=== PATIENT | male | born 1955 | race Hispanic/Latino ===

== ENCOUNTER 2016-09-14 19:47 | Emergency (ER) | payer OTHER ==
[~2016-09-14] VITALS: Ht 182.9 cm; Wt 84.8 kg
--- NOTE | 2016-09-14 21:55 | ED UPPER/LOWER EXTREMITY COMPL ---
History of Present Illness General Chief Complaint: Lower Extremity Problems Stated Complaint: I HAVE WOUNDS ON MY LEGS Source: patient Exam Limitations: no limitations Vital Signs & Intake/Output Vital Signs & Intake/Output Vital Signs Date Time Temp Pulse Resp B/P B/P Pulse O2 O2 Flow FiO2 Mean Ox Delivery Rate 09/14 2330 98.3 70 18 159/75 96 09/15 2019 98.7 96 18 177/93 96 Room Air ED Intake and Output 09/15 0000 09/14 1200 Intake Total Output Total Balance Patient 187 lb Weight Weight Reported by Patient Measurement Method Allergies Coded Allergies: Penicillins (Severe, SWELLING, RASH 09/14/16) Reconcile Medications Aspirin (Ecotrin*) 81 MG TABLET.DR 1 TAB PO DAILY HEART/BLOOD (Reported) Doxycycline Hyclate 100 MG TABLET 1 TAB PO BID open wound Lisinopril 10 MG TABLET 1 TAB PO DAILY BP (Reported) Oxycodone HCl/Acetaminophen (Percocet 5-325 MG Tablet) 5 MG-325 MG TABLET 1-2 TAB PO Q6P PRN pain Triage Note: PT TO TRIAGE WITH C/O CHRONIC WOUNDS TO LLE THAT GETTING WORSE AFTER ?VASCULAR SURGERY YESTERDAY AT [facility]. DRESSING TO Ana GARCIA NOTED. PER PT +PAIN AND +DISCHARGE FROM WOUNDS. Triage Nurses Notes Reviewed? yes Onset: Abrupt Duration: week(s):, constant, continues in ED Timing: recent history No Modifying Factors: none HPI: 61-year-old male comes into emergency room for further evaluation of left lower leg pain and open wound. Patient reports that he's been dealing with an open wound in his leg for many months. Patient has been seeing his vascular doctor. Patient reports that he had a procedure done last week where he had some vein stripping reports that he had a stent put in his leg a couple days ago. Patient reports that he is here primarily because he was concerned that his leg may be infected and he was having pain to the leg. He denies any fever chills vomiting. Denies any other associated symptoms. Past History Travel History Traveled to [place] past 21 day No Medical History Any Pertinent Medical History? see below for history Cardiovascular: hypertension Surgical History Surgical History: non-contributory Psychosocial History What is your primary language Vietnamese Tobacco Use: Never used Family History Hx Contributory? No Review of Systems Review of Systems Constitutional: Reports: no symptoms. EENTM: Reports: no symptoms. Respiratory: Reports: no symptoms. Cardiovascular: Reports: no symptoms. Gastrointestinal/Abdominal: Reports: no symptoms. Genitourinary: Reports: no symptoms. Musculoskeletal: Reports: see HPI. Skin: Reports: see HPI. Neurological/Psychological: Reports: no symptoms. Hematologic/Endocrine: Reports: no symptoms. Immunological: Reports: no symptoms. All Other Systems: Reviewed and Negative Physical Exam Physical Exam General Appearance: well developed/nourished, mild distress Head: atraumatic Eyes: Bilateral: normal appearance. Ears, Nose, Throat: normal ENT inspection, hearing grossly normal Neck: normal inspection Cardiovascular/Respiratory: no respiratory distress Peripheral Pulses: 2+ dorsalis pedis (L) Back: normal inspection Neurologic/Tendon: normal sensation, responds to pain, no evidence tendon injury , no pulse deficit Skin: intact, normal color, warm/dry Lymphatic: no anterior cervical rick Comments: Patient has large open wound to left lower extremity, patient appears to have some weeping from the wound, good tissue granulation, some mild surrounding erythema, some swelling to the leg in general, some mild pitting edema, dorsalis pedis pulse intact, cap refill less than 2 seconds, wound covers from mid garcia down to left medial malleoli region, there is no foul-smelling, full range of motion of foot, Progress Differential Diagnosis: arterial insufficiency, cellulitis, CHF, compartment syndrome, contusion, dislocation, DVT, fracture, gout, septic arthritis, sprain, tendon injury, osteomyelitis Plan of Care: Orders Procedure Date/time Status C-REACTIVE PROTEIN 09/14 2134 Complete CBC WITHOUT DIFFERENTIAL 09/14 2134 Complete BASIC METABOLIC PANEL 09/14 2134 Complete US-UNILATERAL VENOUS DOPPLER 09/14 2126 Active Laboratory Tests 09/14/162144: Anion Gap 10, Estimated GFR > 60, BUN/Creatinine Ratio 20.0, Glucose 124 H, Calcium 9.0, C-Reactive Prot, Quant 0.9, CBC w Diff NO MAN DIFF REQ, RBC 4.53 L , MCV 91.5, MCH 31.1 H, RDW 12.2, MPV 7.7, Gran % 68.8, Lymphocytes % 16.7 L, Monocytes % 9.2, Eosinophils % 4.7, Basophils % 0.6, Absolute Granulocytes 5.4, Absolute Lymphocytes 1.3, Absolute Monocytes 0.7 H, Absolute Eosinophils 0.4, Absolute Basophils 0, PUBS MCHC 34.0 Diagnostic Imaging: Viewed by Me: Radiology Read. Discussed w/RAD: Radiology Read. Radiology Impression: SERVICE DATE: 09/14/16 EXAM TYPE: RAD - XRY-ANKLE 3 OR MORE VIEWS L; [id number], LEFT EXAMINATION: 1. Left tibia-fibula. 2. Left ankle. CLINICAL INFORMATION: Open wound. Pain. Concern for osteomyelitis. COMPARISON: None TECHNIQUE: 1. Left tibia-fibula. 2 views 2. Left ankle. 3 views FINDINGS: 1. Left tibia-fibula. No air in the soft tissue. No focal bone destruction. No radiographic evidence for osteomyelitis. There is coarse periosteal reaction in the mid tibial shaft laterally which is chronic in nature. There is small skin calcifications at the medial side of the mid and distal leg which are chronic. 2. Left ankle. No fracture. No dislocation. Ankle mortise congruent. No bone destruction. No radiographic evidence for osteomyelitis. IMPRESSION: 1. Left tibia-fibula. No radiographic evidence for osteomyelitis. 2. Left ankle. No radiographic evidence for osteomyelitis. DICTATED BY: CARMELLA SALAS MD DATE/TIME DICTATED:09/14/162212 BLIND STITCH MACHINE OPERATOR :CHICA DATE/TIME TRANSCRIBED:09/14/162212 Departure Departure Disposition: HOME OR SELF CARE Condition: Stable Clinical Impression Primary Impression: Open wound of leg Referrals: BEST VIZCAINO,VIOLETA [place] (PCP/Family) Additional Instructions: Take doxycycline and Percocet as prescribed. Follow-up with primary care doctor and your vascular doctor. Follow-up will wound center next week as scheduled. Call for outpatient ultrasound of the left lower leg tomorrow. A slit has been provided to you. Please go over all results of today's visit with your primary care doctor. Contact your primary care doctor to let them know you were here in the emergency room. There may be nonspecific findings which may not be related to your visit today here in the emergency room but may require further evaluation and chronic monitoring by your primary care doctor. If you had a laceration today the chance of foreign body always remains. You should follow-up with your primary care doctor for recheck in 3-5 days for a wound check. If you had an x-ray done there is a chance that a fracture could have been missed on initial read and you should follow-up with your primary care doctor for repeat x-rays if symptoms persist. If your blood pressure was elevated here in the emergency room please have rechecked by her primary care doctor within the next 48 hours by your primary care doctor. If you were prescribed a narcotic here in the emergency room or any type of controlled substances you're not allowed to drive while taking this medication or operate any type of heavy machinery. Narcotics can make you feel lightheaded dizziness nausea and can cause constipation. You may need to pickle water pump operator a stool softener. Thank you for choosing [facility] emergency room. Please return to the emergency room immediately if you have any other concerns worsening of symptoms. Departure Forms: Customer Survey General Discharge Information Prescriptions: Current Visit Scripts Doxycycline Hyclate 1 TAB PO BID #14 TAB Oxycodone HCl/Acetaminophen (Percocet 5-325 MG Tablet) 1-2 TAB PO Q6P PRN pain #20 TAB Comments Patient clinically looks well. Nontoxic-appearing. In no apparent distress. No evidence of osteomyelitis. Patient was unable to get ultrasound tonight. Patient was given outpatient slip to have outpatient ultrasound done tomorrow. Patient has good pulses. Sensation is intact. He started on Doxy. Patient already has follow-up with wound care center. At this time due to the fact of the patient has seen his vascular surgeon multiple times over the course of the past couple months andthe fact that his leg has looks like this for a couple months that have a low suspicion for a DVT and I would imagine that the vascular doctor has already evaluated for this by do not have any other records. At this time I do not feel patient needs any prophylactic anticoagulation tonight. Patient can safely follow-up tomorrow for outpatient ultrasound.
[2016-09-14] MEDS ORDERED: LISINOPRIL10 M1 PO (22:00)
[2016-09-14] MEDS ORDERED: ASPIRIN EC81 M1 PO (22:00)
[2016-09-14 22:06] LABS: ABSOLUTE BASOPHIL COUNT 0 /CUMM (0.0-0.2); ABSOLUTE EOSINOPHIL COUNT 0.4 /CUMM (0.0-0.7); ABSOLUTE GRANULOCYTE CT 5.4 /CUMM (1.4-6.5); ABSOLUTE LYMPH COUNT 1.3 /CUMM (1.2-3.4); ABSOLUTE MONOCYTE COUNT 0.7 /CUMM (0.10-0.60); BASOPHIL % 0.6 % (0.0-2.0); EOSINOPHIL % 4.7 % (0-5); GRANULOCYTE % 68.8 % (42.2-75.2); HEMATOCRIT 41.4 % (42-52); MEAN CORPUSCULAR HGB 31.1 PG (27.0-31.0); MEAN CORPUSCULAR VOLUME 91.5 FL (80.0-94.0); MEAN PLATELET VOLUME 7.7 FL (7.4-10.4); PLATELET COUNT 248 /CUMM (130-400); RBC DISTRIBUTION WIDTH 12.2 % (11.5-14.5); RED BLOOD CELL CT 4.53 /CUMM (4.70-6.10); WHITE BLOOD CELL COUNT 7.8 /CUMM (4.8-10.8)
--- NOTE | 2016-09-14 22:18 | RADIOLOGY REPORT ---
EXAMINATION: 1. Left tibia-fibula. 2. Left ankle. CLINICAL INFORMATION: Open wound. Pain. Concern for osteomyelitis. COMPARISON: None TECHNIQUE: 1. Left tibia-fibula. 2 views 2. Left ankle. 3 views FINDINGS: 1. Left tibia-fibula. No air in the soft tissue. No focal bone destruction. No radiographic evidence for osteomyelitis. There is coarse periosteal reaction in the mid tibial shaft laterally which is chronic in nature. There is small skin calcifications at the medial side of the mid and distal leg which are chronic. 2. Left ankle. No fracture. No dislocation. Ankle mortise congruent. No bone destruction. No radiographic evidence for osteomyelitis. IMPRESSION: 1. Left tibia-fibula. No radiographic evidence for osteomyelitis. 2. Left ankle. No radiographic evidence for osteomyelitis.
[2016-09-14] MEDS ORDERED: DOXYCYCLINE HY100 M4 PO (22:46)
[2016-09-14] MEDS ORDERED: PERCOCET 5-3251 EACH PO (22:46)
[2016-09-14 23:30] VITALS: BP 159/75
== END 2016-09-14 23:40 ==
LOC: ERH 19:47
PROVIDERS: Physician Assistant Medical
DX: S81.802A Unspecified open wound, left lower leg, initial encounter (principal)
CPT/HCPCS: 73590-LT; 73610-LT